=== PATIENT | female | born 1965 | race Caucasian/White ===

== ENCOUNTER 2017-12-12 11:11 | Emergency (ER) | payer OTHER, MEDICAID ==
[2017-12-12 11:21] VITALS: BP 134/77; PULSE 84; RESP 16; TEMP 98.6; O2SAT 97
[2017-12-12] MEDS ORDERED: TDAP ADULT 0.5 ML INJ (BOOSTRIX) IM ONE (11:24)
--- NOTE | 2017-12-12 11:25 | EDPHY ---
H & P Stated Complaint: R finger lac Time Seen by Provider: 12/12/17 11:25 HPI/ROS: HPI: This is a 52-year-old female who presents with Chief Complaint: Right index finger laceration Location: Right index finger Quality: Laceration Duration: Prior to arrival Signs and Symptoms: + bleeding, no radiation, no numbness, no weakness, no tingling, no incontinence, no decreased range of motion, no swelling, no pain, no fever Timing: Acute Severity: Mild Context: Patient is right-hand dominant, presents from [employer] where she works in the [employer] department with complaints of laceration of the tip of the distal aspect of her right index finger. She reports that she applied direct pressure but would not stop bleeding. She cut her finger on the slicer. Denies any paresthesias/weakness/decreased range of motion. Unsure of tetanus status. Takes aspirin and Plavix. Modifying Factors: Direct pressure transient relief Comment: ROS: see HPI Constitutional: No fever, no chills, no weight loss Eyes: No blurred vision Respiratory: No shortness of breath, no cough Cardiovascular: No chest pain Gastrointestinal: No nausea, no vomiting no diarrhea Genitourinary: No dysuria Extremities: No myalgias Neurologic: No weakness, no numbness Skin: No rashes Hematologic: No bruising, no bleeding MEDICAL/SURGICAL/SOCIAL HISTORY: Medical history: Myocardial infarction in 2017, hyperlipidemia, Hypertension Surgical history: Cardiac stent 2017 Social history: Employed at [employer] CONSTITUTIONAL: awake and alert, no obvious distress HEENT: Atraumatic and normocephalic, PERRL, EOMI. Tympanic membranes clear. Oropharynx clear, no exudate and moist pink mucosa. Airway patent. No lymphadenopathy. No meningismus. Cardiovascular: Normal S1/S2, regular rate, regular rhythm, without murmur rub or gallop. PULMONARY/CHEST: Symmetrical and nontender. Clear to auscultation bilaterally. Good air movement. No accessory muscle usage. ABDOMEN: Soft, nondistended, nontender, no rebound, no guarding, no peritoneal signs, no masses or organomegaly. No CVAT. EXTREMITIES: 2/2 radial pulses, strength 5/5, right index finger distal tip shows approximately 4th inch skin avulsion sparing the nail; active bleeding present; DI P, PIP, MCP joints flexion and extension as well as light touch sensation intact. no deformities, no clubbing, no cyanosis or edema. NEUROLOGICAL: no focal neuro deficits. GCS 15. SKIN: Warm and dry, no erythema. no rash. Good capillary refill. Source: Patient Exam Limitations: No limitations - Personal History LMP (Females 10-55): Unknown Current Tetanus/Diphtheria Vaccine: Unsure Current Tetanus Diphtheria and Acellular Pertussis (TDAP): Unsure - Medical/Surgical History Hx Asthma: No Hx Chronic Respiratory Disease: No Hx Diabetes: No Hx Cardiac Disease: Yes Hx Renal Disease: No Hx Cirrhosis: No Hx Alcoholism: No Hx HIV/AIDS: No Hx Splenectomy or Spleen Trauma: No Other PMH: Mi stent 2017. hyperlipidemia. htn - Social History Smoking Status: Current every day smoker Constitutional: Initial Vital Signs Temperature (C) 37.0 C 12/12/17 11:19 Heart Rate 84 12/12/17 11:19 Respiratory Rate 16 12/12/17 11:19 Blood Pressure 134/77 H 12/12/17 11:19 O2 Sat (%) 97 12/12/17 11:19 O2 Delivery Mode Room Air Allergies/Adverse Reactions: iodine Allergy (Verified 12/12/17 11:18) Home Medications: Medication Instructions Recorded Metoprolol Succinate 12/12/17 Plavix 12/12/17 Medical Decision Making Procedures: Procedure: Laceration repair. Verbal consent was obtained from the patient. The 1/4th inch, simple, superficial skin avulsion on the distal tip of the right index finger was anesthetized in the usual fashion using 3 mL of 1% lidocaine without epinephrine. The wound was irrigated, draped and explored to its base with a gloved finger. There were no deep structures involved. No tendon injury was identified. Hemostasis was achieved after using silver nitrate stick x1. Xeroform and clean sterile dressing applied. The procedure was performed by myself. ED Course/Re-evaluation: Wound care provided Tetanus booster given No signs of neurovascular compromise/tenting of skin/compartment syndrome/ extremities and joints examined above and below area of concern and are neurovascularly intact/tendon injury/nail injury. Skin avulsion is superficial; no indications for suture. Silver nitrate used for hemostasis. Clean sterile dressing applied. Wound care written and verbal instructions provided. Work note given. This patient was seen under the supervision of my secondary supervising physician. I evaluated care for this patient independently. Discussed this patient with Dr. Hodgson who did not see the patient. - Data Points Medications Given: Discontinued Medications Diphtheria/Tetanus/Acell Pertussis (Boostrix) 0.5 ml IM .ONCE ONE Stop: 12/12/17 11:25 Last Admin: 12/12/17 11:27 Dose: 0.5 ml Silver Nitrate/Potassium Nitrate (Silver Nitrate Applicator) 1 each TP EDNOW ONE Stop: 12/12/17 11:45 Last Admin: 12/12/17 11:46 Dose: Not Given Departure - Departure Disposition: Home, Routine, Self-Care Clinical Impression: Avulsion of skin of finger without complication Qualifiers: Encounter type: initial encounter Qualified Code(s): S61.209A - Unspecified open wound of unspecified finger without damage to nail, initial encounter Condition: Good Instructions: Skin Avulsion (ED) Additional Instructions: Keep the dressing dry and in place for 48 hours. After 48 hours, you may remove the dressing; wash the site daily with mild soap and water; then pat dry; apply sterile dressing until fully healed. Take Tylenol 650 mg every 4 hours and/or Ibuprofen 600 mg every 8 hours with food as needed for pain. While at work cover with a finger condom or wear gloves x 2 weeks or until fully healed. Return to the ER immediately if you experience redness, red streaks, have fevers /chills, flu like symptoms, limited range of motion, or any other symptoms that concern you. Referrals: Jenise Patino MD [Primary Care Provider] - As per Instructions
[2017-12-12] MEDS ORDERED: SILVER NITRATE APPLICATOR 1 APPL TP ONE ×2 (11:44)
== END 2017-12-12 12:08 | disposition home or self-care (01) ==
PROC: 0HQFXZZ Repair Right Hand Skin, External Approach (ICD-10-PCS; principal; 2017-12-12)
DX: S61.200A Unspecified open wound of right index finger without damage to nail, initial encounter (principal); I10 Essential (primary) hypertension; F17.200 Nicotine dependence, unspecified, uncomplicated; I25.2 Old myocardial infarction; Z95.5 Presence of coronary angioplasty implant and graft; Z23 Encounter for immunization; W29.0XXA Contact with powered kitchen appliance, initial encounter; Y99.0 Civilian activity done for income or pay; Y93.89 Activity, other specified

== ENCOUNTER → 2018-03-08 | Outpatient (CLI) | payer OTHER, MEDICAID | LOC: FLAB 12:57 | PROVIDERS: ATTEND Internal Medicine | DX: M79.641 Pain in right hand (principal); M79.642 Pain in left hand ==